=== PATIENT | female | born 1945 | race Caucasian/White ===

== ENCOUNTER → 2017-12-24 | Outpatient (CLI) | payer MEDICARE | LOC: YCHH 14:24 | PROVIDERS: ATTEND Family Medicine | DX: E03.9 Hypothyroidism, unspecified (principal); N18.9 Chronic kidney disease, unspecified ==

== ENCOUNTER → 2018-01-26 | Outpatient (CLI) | payer MEDICARE | LOC: YCHH 13:29 | PROVIDERS: ATTEND Family Medicine | DX: N39.0 Urinary tract infection, site not specified (principal); N18.9 Chronic kidney disease, unspecified; D64.9 Anemia, unspecified; E03.9 Hypothyroidism, unspecified; E11.9 Type 2 diabetes mellitus without complications ==

== ENCOUNTER → 2018-03-03 | Outpatient (CLI) | payer MEDICARE | LOC: YCHH 13:15 | PROVIDERS: ATTEND Family Medicine | DX: N18.9 Chronic kidney disease, unspecified (principal); D64.9 Anemia, unspecified ==

== ENCOUNTER → 2018-03-17 | Outpatient (CLI) | payer MEDICARE | LOC: YCHH 13:18 | PROVIDERS: ATTEND Family Medicine | DX: N18.9 Chronic kidney disease, unspecified (principal); D64.9 Anemia, unspecified; I50.9 Heart failure, unspecified; E11.9 Type 2 diabetes mellitus without complications; D50.8 Other iron deficiency anemias; N19 Unspecified kidney failure ==